=== PATIENT | male | born 1980 | race Caucasian/White ===

== ENCOUNTER 2018-06-18 21:04 | Emergency (ER) | payer MEDICAID, SELFPAY ==
[2018-06-18 21:06] VITALS: BP 165/94; PULSE 74; RESP 18; TEMP 36.6; O2SAT 95; BMI 31.1
--- NOTE | 2018-06-18 21:23 | CT_ITS ---
STUDY: CT BRAIN WITHOUT CONTRAST REASON FOR EXAM: Male, 38 years old. Trauma. Headache. RADIATION DOSAGE (If Supplied By Facility): CTDIvol = ( 44.99 ) mGy, DLP = ( 779.24 ) mGycm TECHNIQUE: Transaxial CT imaging of the brain was performed without administration of intravenous contrast material. Individualized dose optimization techniques were used for this CT. COMPARISON: None. FINDINGS: There is no acute bleed or infarct. There are normal white matter tracts. The ventricles are normal in configuration. There is no hydrocephalus. The visualized paranasal sinuses are clear. The mastoid air cells are well aerated. There is no skull fracture. CT/Brain/Head without Contrast IMPRESSION: No acute intracranial abnormality. Electronically Signed: Sabas Gottlieb, at 22:26 EDT Tel , Service support ,
--- NOTE | 2018-06-18 21:23 | EKG12_ITS ---
Test Reason : Blood Pressure : / mmHG Vent. Rate : 068 BPM Atrial Rate : 068 BPM P-R Int : 140 ms QRS Dur : 096 ms QT Int : 412 ms P-R-T Axes : 046 042 016 degrees QTc Int : 438 ms Normal sinus rhythm Normal ECG Confirmed by COLE FRIED MD ([id number]), editor & co founder BARRY HOLGUIN ([id number]) on 06/21/2018 2:55:51 PM Referred By: MARY Confirmed By:COLE FRIED MD
--- NOTE | 2018-06-18 21:28 | ED.RN ---
NO OLD EKGS IN MUSE
--- NOTE | 2018-06-18 22:07 | RAD_ITS ---
STUDY: X-RAY CHEST REASON FOR EXAM: Male, 38 years old. Syncope TECHNIQUE: Frontal and lateral views of the chest COMPARISON: None. FINDINGS: The lungs are clear. There are no pleural effusions. There is no pneumothorax. The heart is normal in size. The visualized osseous structures are within normal limits. RAD/Chest PA and Lateral IMPRESSION: No acute thoracic pathology. Electronically Signed: Sabas Gottlieb, at 22:30 EDT Tel , Service support ,
[2018-06-18 22:12] LABS: Absolute Lymphocyte Count 3.98 X10^3/ul (0.83-4.51); Absolute Neutrophil Count 5.8 X10^3/uL (2.0-7.7); Basophil# 0.07 X10^3/uL; Basophil% 0.6 % (0-1); Eosinophil# 0.22 X10^3/uL; Eosinophils% 1.9 % (0-5); Hematocrit 48.2 % (40-54); Hemoglobin 15.9 g/dl (13.0-16.5); Lymphocyte # 3.98 X10^3/ul (4.0); Lymphocyte % 34.9 % (19-41); Mean Corpuscular Hgb 28.8 pg (27.0-32.0); Mean Corpuscular Volume 87.2 fL (80-94); Mean Platelet Vol. 10.9 fl (6.2-12.0); Monocyte# 1.29 X10^3/uL; Monocyte% 11.3 % (0-10); Neutrophil # 5.82 X10^3/uL (2.7-7.7); Neutrophil % 51.1 % (47-70); Platelet Count 259 K/mm3 (150-450); RBC Distribution Width CV 12.7 % (11.6-14.6); RBC Distribution Width SD 40.7 fl (35.1-43.9); Red Blood Count 5.53 M/mm3 (4.6-6.2); White Blood Count 11.4 K/mm3 (4.4-11.0)
[2018-06-18 22:13] LABS: POSITIVE COUNT NO; POSITIVE DIFFERENTIAL NO; POSITIVE MORPHOLOGY NO
[2018-06-18 22:16] LABS: Anion Gap 10 (5-15); BUN 15 mg/dL (7-18); BUN/Creat Ratio 13.4 RATIO (10-20); Calcium,Total 8.4 mg/dL (8.5-10.1); Chloride 105 mmol/L (98-107); Creatinine, Serum 1.12 mg/dL (0.70-1.30); EST Glomerular Filtration Rate 79 mL/min (>60); Est Glom Filt Rate - Afr Amer 95 mL/min (>60); Estimated Creatinine Clearance 97.11 ml/min; Glucose 113 mg/dL (74-106); Potassium 3.1 mmol/L (3.5-5.1); Sodium Level 142 mmol/L (136-145)
--- NOTE | 2018-06-18 22:32 | ED.DCSUM_ITS ---
- ER Visit Summary Date of Service: 06/18/18 Chief Complaint: Head injury History of Present Illness: The patient is a 38 M who states that he has had a history of several concussions. He states he was not feeling well most of the day and in fact had an episode of emesis this afternoon. Then he went to get out of his truck and he either fell and hit his head or passed out he is not sure. States he has a all over generalized headache especially though in the back and complains of neck soreness. He notes some light sensitivity. He is from [place]. Physical Examination: Afebrile vital signs are stable Gen: Well-nourished well-developed Head: Normocephalic atraumatic Eyes: Perrl EOMI injected conjunctiva mild photophobia ENT: TMs clear no rhinorrhea moist mucous membranes Neck: Supple no lymphadenopathy no JVD mild tenderness to palpation of the paraspinal musculature CVS: Regular rate rhythm no murmurs normal S1-S2 Respiratory: No distress clear to auscultation bilaterally chest nontender Abdomen: Soft nontender nondistended normal bowel sounds no masses Back: Nontender Extremity: Nontender no edema Skin: Normal color no rash Neuro: alert orientated ?3 CN II-XII intact normal strength sensation reflexes gait cerebellar Test Results: CT brain negative chest x-ray negative EKG sinus rhythm at a rate of 68 without evidence of ACS or ectopy. CBC BMP negative Emergency Department Course and Treatment: The patient received Toradol.. Patient noted to have an odd affect. He says things like good girl to the nurses. He speaks almost like baby talk at times. His eyes are bloodshot. He states is because it has been a long day. He will be discharged home to rest. Impression: 1. Headache 2. Cervical strain This note was generated with [employer] dictation software. It may contain incorrect words, spelling, and punctuation that were not noted in review of the chart prior to signing ED Disposition - Plan for ED Patient: Disposition: Home or Assisted Living Chief Complaint: Head Injury Instructions: ED Head Injury Closed Prescriptions: Ibuprofen [Motrin] 800 mg PO TID PRN PRN #20 tab PRN Reason: Pain Additional Instructions: Follow-up with your doctor in [place]
[2018-06-18] MEDS: Ketorolac 30 MG/ML Syringe IV (22:36)
[2018-06-18 22:46] VITALS: PULSE 78; RESP 14; O2SAT 99
== END 2018-06-18 22:47 | disposition home or self-care (01) ==
PROVIDERS: Emergency Provider Emergency Medicine
DX: S16.1XXA Strain of muscle, fascia and tendon at neck level, initial encounter (principal); R51 Headache; R11.2 Nausea with vomiting, unspecified; X58.XXXA Exposure to other specified factors, initial encounter; Y93.9 Activity, unspecified; Y92.9 Unspecified place or not applicable
CPT/HCPCS: 70450; 71046; 80048; 85025; 93005; 96374; 96375; 99284; A4216

== ENCOUNTER 2018-07-20 22:09 | Emergency (ER) | payer MEDICAID, OTHER, SELFPAY ==
[2018-07-20 22:10] VITALS: BP 131/71; PULSE 79; RESP 14; TEMP 36.6; O2SAT 97; BMI 29.1
--- NOTE | 2018-07-20 22:50 | RAD_ITS ---
STUDY: X-RAY - RIGHT KNEE REASON FOR EXAM: Male, 38 years old. Fall. Pain. TECHNIQUE: 4 view(s) of the knee. COMPARISON: None. FINDINGS: Tunneling of the distal femur and proximal tibia with previous anterior cruciate ligament reconstruction. Normal proximal tibiofibular articulation. There is no demonstrated fracture. There is mild degenerative arthrosis of the medial femorotibial compartment. There is mild degenerative arthrosis of the lateral femorotibial compartment. Normal patellofemoral articulation. The soft tissue structures are unremarkable. RAD/Knee 4 or More Views IMPRESSION: Degenerative changes with prior anterior cruciate ligament reconstruction. Electronically Signed: Scott Dias MD at 23:40 EST , Service support ,
--- NOTE | 2018-07-20 23:31 | ED.VISSUMM ---
- ER Visit Summary Date of Service: 07/20/18 Chief Complaint: Right knee pain History of Present Illness: The patient is a 38 M who had a right ACL repair 2 years ago. One week ago he twisted and fell onto his right knee. He was seen by a nurse practitioner in [place] yesterday. His knee was placed in a brace and he is supposed to see an orthopedist. He does not yet have an appointment. Patient has been taking Tylenol and ibuprofen [id number]. He reports twisting tonight and his right knee give out on him and he fell. Physical Examination: Vital signs are unremarkable. Patient sitting upright in bed no acute distress. Heart is regular rate and rhythm. Lung sounds are clear. Right lower extremity examination reveals tenderness over the anterior right knee, worse along both the medial and lateral joint lines. There is no effusion noted. Ligaments are tight on testing. He is able to straight leg raise his foot off the bed. Test Results: Right knee x-rays reveal degenerative changes with evidence of prior ACL reconstruction. Emergency Department Course and Treatment: Patient is given 1 tab of oxycodone here. He will be given a short prescription and will be referred to Moe Garcia for follow-up if he does not get an orthopedic referral from his appointment yesterday. He will be given crutches to use as needed. Treatment Plan: [] Disposition: Discharge Impression: Right knee sprain This note was generated with [employer] dictation software. It may contain incorrect words, spelling, and punctuation that were not noted in review of the chart prior to signing ED Disposition - Plan for ED Patient: Chief Complaint: Lower Extremity Injury Referrals: Care Physician,No Primary [Primary Care Provider] -
[2018-07-20] MEDS: oxyCODONE 5 MG Tablet PO (23:44)
--- NOTE | 2018-07-20 23:45 | ED.DEP ---
ED Disposition - Plan for ED Patient: Disposition: Home or Assisted Living Chief Complaint: Lower Extremity Injury Instructions: ED Sprain Knee Prescriptions: Oxycodone HCl/Acetaminophen [Percocet 5/325] 1 tablet PO Q6H PRN PRN 3 Days #12 tablet PRN Reason: Pain Referrals: Moe Garcia MD [STAFF PHYSICIAN] - As soon as possible
[2018-07-21 00:29] VITALS: RESP 16
== END 2018-07-21 00:31 | disposition home or self-care (01) ==
PROVIDERS: Emergency Provider Emergency Medicine
DX: S83.91XA Sprain of unspecified site of right knee, initial encounter (principal); X50.1XXA Overexertion from prolonged static or awkward postures, initial encounter; Y93.9 Activity, unspecified; Y92.9 Unspecified place or not applicable; Z87.891 Personal history of nicotine dependence
CPT/HCPCS: 73564; 99283

== ENCOUNTER 2018-07-31 21:58 | Emergency (ER) | payer OTHER, MEDICAID, SELFPAY ==
[2018-07-31 21:58] VITALS: BP 162/104; PULSE 73; RESP 18; TEMP 36.1; O2SAT 97; BMI 31.6
--- NOTE | 2018-07-31 22:42 | RAD_ITS ---
STUDY: X-RAY - RIGHT KNEE REASON FOR EXAM: Male, 38 years old. Pain, sprain TECHNIQUE: 4 view(s) of the knee. COMPARISON: None. FINDINGS: Normal visualized distal femur. Normal visualized proximal tibia and fibula. Normal proximal tibiofibular articulation. Normal medial femorotibial compartment. Mild spurring at the lateral femorotibial compartment. Normal patellofemoral articulation. The soft tissue structures are unremarkable. Prior lateral surgery of the knee. RAD/Knee 4 or More Views IMPRESSION: No acute injury bony injury of the knee. Electronically Signed: Reinier Perez DO at 23:48 EST Tel [phone], Service support ,
--- NOTE | 2018-07-31 22:43 | ED.VISSUMM ---
- ER Visit Summary Date of Service: 07/31/18 Chief Complaint: Right knee pain History of Present Illness: The patient is a 38 M with no primary care physician. He reports he has pain in his right knee that began on July 13. He reports that I fallen 26 times onto my knee since then. States that his last fall was this evening. He denies any other injuries. No blow to the head or loss of consciousness. He is not on blood thinners. No neck, back, shoulder, wrist, or hip pain. Patient reports that initially he was seen in [place] and is followed up at [facility] and has a brace on his knee. He was also seen by [facility] and is scheduled for an MRI in 2 days. He states that he is on Relafen and is out of Ultram. He describes a stabbing pains 10 at 10 worst 910 currently. Is worsened by walking sometimes. States that he uses his crutches as much as he can. Physical Examination: Vitals: Stable. Afebrile. General: Well-nourished and well-developed. Head: Normocephalic atraumatic. Neck: Supple, no lymphadenopathy. No JVD. Nontender. Cardiovascular: Regular rate and rhythm. No murmurs. Respiratory: No respiratory distress. Clear to auscultation bilaterally. Abdominal: Soft, nontender, nondistended, normal bowel sounds. No guarding, rebound, or peritoneal signs. Back: Nontender. Extremities: Right knee: Mild diffuse tenderness palpation. No point tenderness. No appreciable joint effusion. No overlying erythema or warmth to suggest a septic joint. No contusion or abrasion. He has pain, but no ligamentous instability with anterior/posterior drawer and medial/lateral stress. He has a 2+ dorsalis pedis pulse. Skin: Normal color, no rash. Neurologic: Alert and oriented ?3. Cranial nerves II through XII are intact. Normal strength and sensation. Psych: Normal affect. Test Results: Right knee x-ray shows no acute disease. Emergency Department Course and Treatment: An OARRS report was searched for, but unfortunately it was sent to administration and I cannot do this. He was treated with naproxen and Tylenol. Treatment Plan: At this time patient has seen multiple practitioners for this. I do not think that putting him on an opiate-based medication as is in his best interest. He will be discharged instructions to rest, ice, elevate, continue his Relafen with the addition of Tylenol, and follow-up with Work[employer] Compensation and with orthopedics as previously directed. Disposition: To home in improved and stable condition. Impression: 1. Right knee pain, repeat visit. This note was generated with [employer] dictation software. It may contain incorrect words, spelling, and punctuation that were not noted in review of the chart prior to signing ED Disposition - Plan for ED Patient: Chief Complaint: Other, Pain/Inj Instructions: ED Knee Pain [facility] Referrals: Moe Garcia MD [STAFF PHYSICIAN] - Keep Dick appointment
[2018-07-31] MEDS: Naproxen 500 MG Tablet PO (22:49)
[2018-07-31] MEDS: Acetaminophen 500 MG Tablet 1000 MG PO (22:49)
== END 2018-07-31 23:18 | disposition home or self-care (01) ==
PROVIDERS: Emergency Provider Emergency Medicine
DX: M25.561 Pain in right knee (principal); W19.XXXA Unspecified fall, initial encounter; Y92.9 Unspecified place or not applicable; Y93.9 Activity, unspecified; M41.9 Scoliosis, unspecified; Z87.820 Personal history of traumatic brain injury
CPT/HCPCS: 73564; 99283

== ENCOUNTER → 2018-08-02 17:04 | Outpatient (CLI) | payer OTHER, SELFPAY ==
[2018-07-31 21:58] VITALS: BMI 31.6
--- NOTE | 2018-08-02 17:14 | MRI_ITS ---
STUDY: MRI RIGHT KNEE REASON FOR EXAM: Knee pain, instability, injury 07/13/2018, ACL repair 2016. TECHNIQUE: Standardized fat and water weighted pulse sequences were obtained in all 3 orthogonal planes. COMPARISON: Radiographs 07/31/2018. FINDINGS: There is a small vertical tear at the periphery of the posterior horn of the medial meniscus (proton-density sagittal images 30-32). Normal hyaline cartilage of the medial femorotibial compartment. Normal medial femoral condyle and tibial plateau. Normal medial collateral ligamentous complex (MCL). Normal distal semimembranosus, gracilis and semitendinosus tendons. Normal lateral meniscus. Normal hyaline cartilage of the lateral femorotibial compartment. There is very mild subchondral bone edema of the posterior aspect of the lateral tibial plateau (T2 coronal image 11; T2 sagittal image 6), a stress phenomenon. Normal proximal tibiofibular articulation. Normal lateral collateral (fibular) ligament. Normal popliteus tendon. Normal biceps femoris tendon. There is mild interstitial edema in the proximal anterior cruciate ligament graft (T2 sagittal image 12; T2 coronal images 11-13) suggestive of a low-grade sprain. Normal posterior cruciate ligament (PCL). Normal congruent patellofemoral articulation. Normal hyaline cartilage of the patellofemoral compartment. Normal medial and lateral patellar retinaculum. Normal visualized quadriceps tendon. Normal patellar tendon. There is postoperative scarring in Hoffa's fat pad. There is a minimal volume of fluid in the knee joint. The soft tissues are unremarkable. There are postoperative changes of the distal femur and proximal tibia from anterior cruciate ligament reconstruction. MRI/Lower Ext Joint Only (Routine) IMPRESSION: Small tear at the periphery of the posterior horn of the medial meniscus. Low-grade sprain of the anterior cruciate ligament graft. Very mild subchondral bone edema of the lateral tibial plateau, a stress phenomenon. Electronically Signed: Efren Hamilton MD at 7:42 EST Tel , Service support ,
== END ==
PROVIDERS: Referring Provider Physician Assistant; Visit Provider Physician Assistant
DX: S80.01XA Contusion of right knee, initial encounter (principal)
CPT/HCPCS: 73721

== ENCOUNTER 2018-10-19 20:35 | Emergency (ER) | payer SELFPAY ==
[2018-10-19 20:37] VITALS: BP 154/99; PULSE 98; RESP 16; TEMP 36.4; O2SAT 99; BMI 30.8
--- NOTE | 2018-10-19 22:10 | CT_ITS ---
HISTORY: Sudden onset headache frontal and lt facial EXAM/TECHNIQUE: CTA Head WO/W Contrast: Noncontrast head CT performed. Followed by CTA head. Multiplanar and three-dimensional reconstructed images provided. COMPARISON: CT brain without contrast 06/18/18. FINDINGS: # of images incl. paperwork: [address] shows no evidence of infarct, hemorrhage or mass. No hydrocephalus or midline shift. CTA head reveals normal arborization and caliber of the intracranial arteries. No aneurysm. No evidence of AVM. No significant atherosclerosis or arterial narrowing. No intracranial DVT. CT/CTA Head W/WO Contrast IMPRESSION: CT brain and CTA head within normal limits. No etiology for headache identified. Individualized dose optimization techniques were used for this CT. at 2322 Reported and signed by: Roby Gibbons MD Electronically Signed: Roby Gibbons, at 23:21 EST Tel , Service support ,
--- NOTE | 2018-10-19 22:11 | CT_ITS ---
STUDY: CTA NECK WITH CONTRAST REASON FOR EXAM: Male, 38 years old. Dizziness and headache RADIATION DOSAGE (If Supplied By Facility): CTDIvol = ( 26.62 ) mGy, DLP = ( 1402.30 ) mGycm TECHNIQUE: CT angiography with multi-detector data acquisition was performed from the aortic arch to the skull base following intravenous administration of 100ml ml of Isovue 370 contrast. MIP images were reconstructed from the axial data set. Post-processing of the angiographic images was performed, with multiplanar reformation and 3D reconstruction. Individualized dose optimization techniques were used for this CT. COMPARISON: None. FINDINGS: AORTIC ARCH: Normal visualized aortic arch. Normal origins of the brachiocephalic, left common carotid, and left subclavian arteries. RIGHT CAROTID ARTERIES: Normal right common carotid artery (CCA). Normal right common carotid bulb. Normal origin of the right internal carotid (ICA) artery without a hemodynamically significant stenosis. Normal visualized cervical portion of the right internal carotid artery. Normal origin of the right external carotid artery (ECA). LEFT CAROTID ARTERIES: Normal left common carotid artery (CCA). Normal left common carotid bulb. Normal origin of the left internal carotid (ICA) artery without a hemodynamically significant stenosis. Normal visualized cervical portion of the left internal carotid artery. Normal origin of the left external carotid artery (ECA). VERTEBRAL ARTERIES: Normal bilateral vertebral arteries. CT/CTA Neck W/WO Contrast IMPRESSION: No CTA evidence of significant pathology involving the arteries of the neck. Electronically Signed: Roberto Carlos Owens MD at 23:23 EST Tel , Service support ,
[2018-10-19] MEDS: 0.9% Normal Saline 1,000 ML 1000 ML IV (22:23)
[2018-10-19] MEDS: Ketorolac 30 MG/ML Syringe IV (22:23)
[2018-10-19] MEDS: DiphenhydrAMINE 50 MG/ML Syringe 25 MG IV (22:23)
[2018-10-19] MEDS: Metoclopramide 10 MG/2 ML Vial IV (22:23)
[2018-10-19 22:34] LABS: Absolute Lymphocyte Count 3.06 X10^3/ul (0.83-4.51); Absolute Neutrophil Count 6.9 X10^3/uL (2.0-7.7); Basophil# 0.06 X10^3/uL; Basophil% 0.5 % (0-1); Eosinophil# 0.25 X10^3/uL; Eosinophils% 2.1 % (0-5); Hematocrit 47.2 % (40-54); Hemoglobin 15.8 g/dl (13.0-16.5); Lymphocyte # 3.06 X10^3/ul (4.0); Lymphocyte % 25.9 % (19-41); Mean Corp Hgb Conc 33.5 g/gl (32-36); Mean Corpuscular Hgb 29.3 pg (27.0-32.0); Mean Corpuscular Volume 87.4 fL (80-94); Mean Platelet Vol. 11.1 fl (6.2-12.0); Monocyte# 1.53 X10^3/uL; Monocyte% 12.9 % (0-10); Neutrophil % 58.3 % (47-70); Platelet Count 263 K/mm3 (150-450); RBC Distribution Width CV 13.1 % (11.6-14.6); RBC Distribution Width SD 41.5 fl (35.1-43.9); White Blood Count 11.8 K/mm3 (4.4-11.0)
[2018-10-19 22:48] LABS: Anion Gap 7 (5-15); BUN 11 mg/dL (7-18); BUN/Creat Ratio 10.2 RATIO (10-20); Calcium,Total 8.4 mg/dL (8.5-10.1); Chloride 108 mmol/L (98-107); Creatinine, Serum 1.08 mg/dL (0.70-1.30); EST Glomerular Filtration Rate 82 mL/min (>60); Est Glom Filt Rate - Afr Amer 99 mL/min (>60); Estimated Creatinine Clearance 103.79 ml/min; Glucose 130 mg/dL (74-106); Potassium 3.4 mmol/L (3.5-5.1); Sodium Level 140 mmol/L (136-145)
[2018-10-19 22:57] LABS: Differential Indicated SCAN CRITERIA MET; POSITIVE COUNT NO; POSITIVE DIFFERENTIAL YES; POSITIVE MORPHOLOGY NO
[2018-10-19 22:59] LABS: Anisocytosis RARE; Platelet Estimate ADEQUATE (ADEQ)
--- NOTE | 2018-10-19 23:36 | ED.VISSUMM ---
- ER Visit Summary Date of Service: 10/19/18 Chief Complaint: Headache History of Present Illness: The patient is a 38 M who was lifting weights with his son around 730 tonight when he developed sudden onset of headache behind his eyes, mild blurred vision, and left facial numbness. Patient states his neck feels somewhat stiff. He was not seen until 10 PM for evaluation. He did take tramadol before the exercise for his knee pain, but has not taken anything for the headache. Physical Examination: Vital signs significant for blood pressure 154/99, otherwise unremarkable. Head neck examination reveals no external sign of trauma. Pupils are equal and reactive. He has no meningismus. Heart is regular rate and rhythm. Lungs sounds are clear. Abdomen is soft nontender. Neuro exam reveals no focal deficits. Test Results: CBC reveals white count 11.8. Chemistry studies grossly unremarkable. CTA of the head and neck were obtained and are unremarkable. Emergency Department Course and Treatment: Patient was given Toradol, Reglan, Benadryl, and IV fluids. On repeat evaluation patient is sleeping comfortably. I awaken him from sleep and he tells me his head is no different. He will be given Tylenol and discharged home with his . Patient is 4 hours after onset with a negative CTA. At the time of discharge he now tells me he has had similar headaches to this in the past. Family is comfortable with the plan. Treatment Plan: [] Disposition: Discharge Impression: Cephalgia This note was generated with [employer] dictation software. It may contain incorrect words, spelling, and punctuation that were not noted in review of the chart prior to signing ED Disposition - Plan for ED Patient: Disposition: Home or Assisted Living Instructions: ED Cephalgia Unspecified Referrals: Jon Garcia MD [STAFF PHYSICIAN] - As Needed
[2018-10-19] MEDS: Acetaminophen 500 MG Tablet 1000 MG PO (23:41)
[2018-10-19 23:43] VITALS: BP 148/78; PULSE 80; RESP 16; O2SAT 98
[2018-10-20 12:41] LABS: Pathologist Review Reviewed
== END 2018-10-19 23:45 | disposition home or self-care (01) ==
PROVIDERS: Emergency Provider Emergency Medicine
DX: R51 Headache (principal); H53.8 Other visual disturbances; R20.0 Anesthesia of skin; R11.0 Nausea; M54.2 Cervicalgia
CPT/HCPCS: 70496; 70498; 80048; 85025; 96361; 96374; 96375; 99285; J7030; Q9967; A4216

== ENCOUNTER 2018-12-25 17:58 | Emergency (ER) | payer OTHER, SELFPAY ==
[2018-12-25 17:59] VITALS: BP 145/81; PULSE 96; RESP 16; TEMP 37; O2SAT 97; BMI 28.9
--- NOTE | 2018-12-25 18:33 | ED.DCSUM_ITS ---
History of Present Illness Chief Complaint: Lower Extremity Injury Informant: Patient Onset: Month(s) Context: Gradual Onset Timing: Continuous Quality: Pain Location: Right knee Current Severity: Mild Maximum Severity: Moderate Worsened by: Movement Relieved by: Nothing Associated Symptoms: Nothing Narrative: Patient presents with right knee pain that is related to a prior workers comp injury. He is undergone [address] Disla. He states workers comp finally approved an MRI . I asked what prompted him to come here. He was under the expectation that if an MRI would be obtained. I informed him that an MRI would not be obtained today. I also informed him since this is a chronic issue he would receive anti-inflammatories only. He would not receive any opiate analgesia. Prior similar symptoms: Yes Recent Illness/Hospitalization: Yes Past Medical History - Allergies and Home Meds Allergies/Adverse Reactions: Allergies No Known Allergies Allergy (Verified 12/25/18 18:01) Primary Care Physician: Care Physician,No Primary [Primary Care Provider] - Prior records reviewed: No Surgical History: - - Arthroscopic surgery x3 by Dr. Disla Lives: Alone Smoking Status: Current every day smoker Drugs: None Review of Systems General: Denies: Chills, Fever, Malaise, Sweats, Weight loss Musculoskeletal: Reports: Extremity Pain - Right knee pain. Denies: Myalgias, Arthralgias, Neck pain, Back pain, Swelling Skin: Reports: Rash. Denies: Abscess, Abrasions, Wounds Endocrine: Denies: Polyuria, Polydipsia Hematologic: Denies: Easy bruising, Easy bleeding Allergy: Denies: Uticaria, Swelling of the mouth Physical Exam Vital Signs/Narrative: Vital Signs Temp Pulse Resp BP Pulse Ox 12/25/18 17:59 98.6 F 96 16 145/81 H 97 Inital Vital Signs reviewed: Yes General: Well nourished, Well developed, No Acute Distress Head: Normocephalic, Atraumatic Eyes: Perrl, EOMI. Negative for: Pale conjunctiva, Scleral icterus Cardiovascular: Regular rate, Regular rhythm, No murmurs Respiratory: No distress Extremities: No edema, - - Patient is able to extend 180 degrees and flex to 90 degrees. This was done quite easily with no hesitation or grimacing. The patella is not ballotable. There is no effusion. There is no laxity with varus valgus stress testing. Modified Dave's test negative. Hellen's test negative. No neurovascular compromise noted.. Negative for: Nontender Skin: Normal color, Rash - Patient has evidence of folliculitis right lower leg Neurological: Alert, Oriented x3, Cranial nerves II-XII grossly intact, Normal Strength, Normal Sensation Psychological: Tearful - Patient became tearful when he was informed that he would not have an MRI or anything stronger than an anti-inflammatory. Diagnostic/Tx/Re-eval - Medical Decision Making Patient with chronic right knee pain status post multiple arthroscopic surgeries. Presents with persistent pain. Since exam is unremarkable with no laxity and no effusion patient was instructed to continue taking anti- inflammatories and follow-up with Dr. Edwards ED Disposition - Plan for ED Patient: Disposition: Home or Assisted Living Diagnosis: Pain of right knee after injury Referrals: Care Physician,No Primary [Primary Care Provider] - Berny Edwards DO [STAFF PHYSICIAN] - 5-7 Days
[2018-12-25 19:08] VITALS: PULSE 94; RESP 17; O2SAT 97
== END 2018-12-25 19:10 | disposition home or self-care (01) ==
LOC: ED 18:47
PROVIDERS: Emergency Provider Emergency Medicine
DX: M25.561 Pain in right knee (principal); G89.29 Other chronic pain; L73.9 Follicular disorder, unspecified; F17.200 Nicotine dependence, unspecified, uncomplicated
CPT/HCPCS: 99282

== ENCOUNTER → 2020-04-05 16:44 | Outpatient (CLI) | payer BC, SELFPAY ==
[2020-04-05 17:30] LABS: Absolute Lymphocyte Count 3.22 X10^3/uL (0.83-4.51); Absolute Neutrophil Count 7.5 X10^3/uL (2.0-7.7); Basophil# 0.09 X10^3/uL; Basophil% 0.7 % (0-1); Eosinophil# 0.26 X10^3/uL; Eosinophils% 2.1 % (0-5); Hematocrit 50.4 % (40-54); Hemoglobin 16.3 g/dL (13.0-16.5); Lymphocyte # 3.22 X10^3/ul (4.0); Lymphocyte % 25.4 % (19-41); Mean Corp Hgb Conc 32.3 g/dL (32-36); Mean Corpuscular Hgb 28.8 pg (27.0-32.0); Mean Platelet Vol. 11.3 fl (6.2-12.0); Monocyte# 1.57 X10^3/uL; Monocyte% 12.4 % (0-10); NRBC Flagged by Analyzer 0 % (0-5); Neutrophil # 7.48 X10^3/uL (2.7-7.7); Neutrophil % 59.1 % (47-70); POSITIVE DIFFERENTIAL YES; Platelet Count 266 K/mm3 (150-450); RBC Distribution Width CV 12.7 % (11.6-14.6); RBC Distribution Width SD 41.4 fl (35.1-43.9); Red Blood Count 5.66 M/mm3 (4.6-6.2); White Blood Count 12.7 K/mm3 (4.4-11.0)
[2020-04-05 17:32] LABS: Differential Indicated SCAN CRITERIA MET
[2020-04-05 18:10] LABS: Anion Gap 6 (5-15); BUN 14 mg/dL (7-18); BUN/Creat Ratio 10.9 RATIO (10-20); Calcium,Total 8.5 mg/dL (8.5-10.1); Chloride 106 mmol/L (98-107); Creatinine, Serum 1.29 mg/dL (0.70-1.30); EST Glomerular Filtration Rate 66 mL/min (>60); Est Glom Filt Rate - Afr Amer 80 mL/min (>60); Glucose 99 mg/dL (74-106); Potassium 3.1 mmol/L (3.5-5.1); Sodium Level 139 mmol/L (136-145); Thyroid Stim Hormone (TSH) 0.84 uIU/mL (0.358-3.74)
[2020-04-05 18:18] LABS: Differential Comment SCANNED
[2020-04-06 12:13] LABS: Pathologist Review Reviewed
== END ==
LOC: MFPLAB 16:48
PROVIDERS: PCP Family Medicine; Referring Provider Family Medicine; Visit Provider Family Medicine
DX: R61 Generalized hyperhidrosis (principal)
CPT/HCPCS: 36415; 80048; 84443; 85025

== ENCOUNTER → 2020-04-23 13:00 | Outpatient (CLI) | payer BC, SELFPAY ==
[2020-04-23 18:47] LABS: Anion Gap 9 (5-15); BUN 13 mg/dL (7-18); BUN/Creat Ratio 10.7 RATIO (10-20); Calcium,Total 9.2 mg/dL (8.5-10.1); Chloride 104 mmol/L (98-107); Creatinine, Serum 1.22 mg/dL (0.70-1.30); EST Glomerular Filtration Rate 71 mL/min (>60); Est Glom Filt Rate - Afr Amer 85 mL/min (>60); Glucose 95 mg/dL (74-106); Potassium 3.4 mmol/L (3.5-5.1); Sodium Level 140 mmol/L (136-145)
== END ==
PROVIDERS: PCP Family Medicine; Referring Provider Family Medicine; Visit Provider Family Medicine
DX: E87.6 Hypokalemia (principal)
CPT/HCPCS: 36415; 80048